=== PATIENT | female | born 1950 | race Two or more races ===

== ENCOUNTER 2024-11-11 16:42 | Inpatient (IN) | payer MEDICAID, MEDICARE ==
[~2024-11-11] VITALS: Ht 157.5 cm; Wt 61.2 kg
[2024-11-11 17:35] LABS: PLATELET COUNT (AUTO) 289 K/uL (150-450); RED BLOOD CELL COUNT(AUTO) 4.96 MIL/uL (4.0-5.2); RED CELL DISTRIBUTION WIDTH 20.6 % (11.5-15.0); WHITE BLOOD COUNT (AUTO) 10.0 K/uL (4.3-11.0)
[2024-11-11 17:37] LABS: APPEARANCE,URINE CLEAR (CLEAR); BLOOD, URINE TRACE-INTA Ery/uL (NEGATIVE); LEUKOCYTE ESTERASE ,URINE NEGATIVE (NEGATIVE); NITRITE, URINE NEGATIVE (NEGATIVE); UGLUCOSE NEGATIVE (NEGATIVE)
[2024-11-11 17:43] LABS: CALCIUM, SERUM 9.2 mg/dL (8.5-10.1); CREATININE 0.7 mg/dL (0.6-1.3); SODIUM SERUM 131 mmol/L (136-145); UREA NITROGEN, BLOOD 14 mg/dL (7-18)
[2024-11-11 17:49] LABS: ADD URINE CULTURE NO
[2024-11-11 17:49] LABS: ALCOHOL, BLOOD < 3 mg/dL (0-10); ASPARTATE AMINOTRANSFERASE 28 U/L (15-37); TOTAL PROTEIN, SERUM 8.2 g/dL (6.4-8.2)
[2024-11-11 18:15] LABS: AMPHETAMINE, URINE NEGATIVE (NEGATIVE); BARBITURATE, URINE NEGATIVE (NEGATIVE); BENZODIAZEPINE, URINE NEGATIVE (NEGATIVE); CANNABINOID, URINE NEGATIVE (NEGATIVE); COCCAINE, URINE NEGATIVE (NEGATIVE); OPIATE, URINE NEGATIVE (NEGATIVE)
[2024-11-11] MEDS ORDERED: INSU100V7 SQ (21:08)
[2024-11-11] MEDS ORDERED: PANT40TA49 PO (21:08)
[2024-11-11] MEDS ORDERED: FLUT1BLS14 INH (21:08)
[2024-11-11] MEDS ORDERED: ICOS1CAP PO ×2 (21:08)
[2024-11-11] MEDS ORDERED: OLME5TAB3 PO (21:08)
[2024-11-11] MEDS ORDERED: POTA10CA43 PO (21:08)
[2024-11-11] MEDS ORDERED: EMPA10TA PO (21:08)
[2024-11-11] MEDS ORDERED: ROSU20TA2 PO (21:08)
[2024-11-11] MEDS ORDERED: DAPA1TAB3 PO (21:08)
[2024-11-11] MEDS ORDERED: TRAM50TA2 PO (21:08)
[2024-11-11] MEDS ORDERED: ACET325C7 PO (21:08)
[2024-11-11] MEDS ORDERED: ZOLPIDEM TARTRATE 5 MG TABLET PO PRN (22:30)
[2024-11-11] MEDS ORDERED: QUETIAPINE FUMARATE 25 MG TABLET PO PRN (22:30)
[2024-11-11] MEDS ORDERED: MAGNESIUM HYDROXIDE 30 ML UDC PO PRN (22:30)
[2024-11-11] MEDS ORDERED: MAG HYDROX/AL HYDROX/SIMETH 30 ML UDC PO PRN (22:30)
[2024-11-11] MEDS: BLOOD SUGAR DIAGNOSTIC 1 EACH STRIP IN ONE (23:18)
[2024-11-11] MEDS: ZOLPIDEM TARTRATE 5 MG TABLET PO PRN (23:27)
[2024-11-12] MEDS ORDERED: DEXTROSE 50%-WATER 50 ML DISP.SYRIN IV PRN (01:30)
[2024-11-12 03:31] VITALS: BP 138/79; TEMP 98.5; O2SAT 96
[2024-11-12 07:38] LABS: PLATELET COUNT (AUTO) 245 K/uL (150-450); RED BLOOD CELL COUNT(AUTO) 4.37 MIL/uL (4.0-5.2); RED CELL DISTRIBUTION WIDTH 20.5 % (11.5-15.0); WHITE BLOOD COUNT (AUTO) 8.0 K/uL (4.3-11.0)
[2024-11-12] MEDS: BLOOD SUGAR DIAGNOSTIC 1 EACH STRIP VI SCH (07:44)
[2024-11-12 08:00] VITALS: BP 123/61; TEMP 97.8; O2SAT 98
[2024-11-12 08:02] LABS: CALCIUM, SERUM 9.0 mg/dL (8.5-10.1); CREATININE 0.7 mg/dL (0.6-1.3); SODIUM SERUM 136.0 mmol/L (136-145); UREA NITROGEN, BLOOD 13.0 mg/dL (7-18)
[2024-11-12] MEDS: PANTOPRAZOLE 40 MG TABLET.DR PO SCH (08:43)
[2024-11-12] MEDS: ATORVASTATIN 40 MG TABLET PO SCH (08:43)
[2024-11-12] MEDS: POTASSIUM CHLORIDE 10 MEQ TABLET.SA PO SCH (08:43)
[2024-11-12] MEDS: EMPAGLIFLOZIN 10 MG TABLET PO SCH (08:44)
[2024-11-12] MEDS: FLUTICASONE/VILANTEROL 1 EACH BLST.W.DEV IH SCH (08:45)
[2024-11-12] MEDS: LOSARTAN POTASSIUM 50 MG TABLET PO SCH (08:45)
[2024-11-12] MEDS: INSULIN REGULAR, HUMAN 100 UNIT/ML 3 ML VIAL SQ PRN (08:52)
[2024-11-12] MEDS ORDERED: Medication Not On Formulary EA (Icosapent Ethyl (Vascepa) 2 GM) PO SCH (09:00)
[2024-11-12] MEDS: TRAMADOL HCL 50 MG TABLET PO PRN (09:25)
[2024-11-12 16:00] VITALS: BP 119/69; TEMP 98.8; O2SAT 96
[2024-11-12] MEDS: RESTASIS 0.05% EACHEYE SCH (18:07)
[2024-11-12] MEDS: EYE EACHEYE SCH (18:07)
[2024-11-12] MEDS: SERTRALINE HCL 25 MG TABLET PO SCH (18:08)
[2024-11-12 20:40] VITALS: BP 123/60; TEMP 98.6; O2SAT 99
[2024-11-12] MEDS: ACETAMINOPHEN 325 MG TABLET PO PRN (21:32)
[2024-11-12] MEDS: INSULIN GLARGINE, 100 UNIT/ML CARTRIDGE SQ SCH (21:42)
[2024-11-12] MEDS: *INSULIN REGULAR(HUMULIN R)HUM 100 UNIT/ML VIAL SQ PRN (21:43)
[2024-11-12] MEDS: TEMAZEPAM 7.5 MG CAPSULE PO PRN (22:17)
[2024-11-13 08:00] VITALS: BP 123/58; TEMP 98.2; O2SAT 98
[2024-11-13 16:00] VITALS: BP 131/59; TEMP 99; O2SAT 100
[2024-11-13] MEDS ORDERED: DIPHENOXYLATE HCL/ATROP SULF 1 UDTAB TABLET PO PRN (17:30)
[2024-11-13 20:53] VITALS: BP 155/79; TEMP 98.8; O2SAT 100
[2024-11-14 08:01] VITALS: BP 130/72; TEMP 97.9; O2SAT 97
[2024-11-14 16:00] VITALS: BP 136/69; TEMP 98.1; O2SAT 98
[2024-11-14 20:23] VITALS: BP 150/73; TEMP 98.2; O2SAT 100
[2024-11-15 08:00] VITALS: BP 161/75; TEMP 98.6; O2SAT 100
[2024-11-15 16:00] VITALS: BP 139/72; TEMP 98.7; O2SAT 98
[2024-11-15] MEDS ORDERED: METFORMIN HCL PO SCH (17:00)
[2024-11-15] MEDS ORDERED: DAPAGLIFLOZIN PROPANEDIOL 5 MG TABLET PO SCH ×4 (17:00)
[2024-11-15] MEDS ORDERED: DAPAGLIFLOZIN PO SCH (17:00)
[2024-11-15] MEDS ORDERED: METFORMIN XR 500 MG TAB.SR.24H PO SCH (17:00)
[2024-11-15 17:12] LABS: PLATELET COUNT (AUTO) 236 K/uL (150-450); RED BLOOD CELL COUNT(AUTO) 4.16 MIL/uL (4.0-5.2); RED CELL DISTRIBUTION WIDTH 20.9 % (11.5-15.0); WHITE BLOOD COUNT (AUTO) 6.5 K/uL (4.3-11.0)
[2024-11-15 17:25] LABS: CALCIUM, SERUM 8.9 mg/dL (8.5-10.1); CREATININE 0.5 mg/dL (0.6-1.3); SODIUM SERUM 134.0 mmol/L (136-145); UREA NITROGEN, BLOOD 13.0 mg/dL (7-18)
[2024-11-15 17:35] LABS: INR 1.03 (0.91-1.10)
[2024-11-15 18:24] LABS: BASOPHILS % (MANUAL) 0 % (0.0-2.0); EOSINOPHILS % (MANUAL) 4 % (0-4); LYMPHOCYTES % (MANUAL) 35 % (16-48); MONOCYTES % (MANUAL) 6 % (0-11.0); NEUTROPHILS % (MANUAL) 55 (42-76); PLATELET ESTIMATE ADEQUATE
[2024-11-15 20:00] VITALS: BP 136/75; TEMP 97.8; O2SAT 98
[2024-11-16 08:00] VITALS: BP 153/76; TEMP 97.8; O2SAT 98
[2024-11-16] MEDS: SERTRALINE HCL 25 MG TABLET PO SCH (09:19)
[2024-11-16 16:00] VITALS: BP 144/75; TEMP 97.7; TEMP 98.6; O2SAT 100; O2SAT 96
[2024-11-16 19:51] VITALS: BP 124/56; TEMP 98.4; O2SAT 100
[2024-11-17 08:00] VITALS: BP 139/67; TEMP 98.6; O2SAT 98
[2024-11-17 08:15] VITALS: BP 139/67
== END 2024-11-17 12:00 | disposition home or self-care (01) | DRG 885 ==
LOC: ER 16:48 → GPS 21:08
PROVIDERS: ADMIT Psychiatry & Neurology Psychiatry; ATTEND Student in an Organized Health Care Education/Training Program
DX: F39 Unspecified mood [affective] disorder (principal); E87.1 Hypo-osmolality and hyponatremia; F43.21 Adjustment disorder with depressed mood; F31.9 Bipolar disorder, unspecified; E11.9 Type 2 diabetes mellitus without complications; E78.5 Hyperlipidemia, unspecified; G47.00 Insomnia, unspecified; I10 Essential (primary) hypertension; J45.909 Unspecified asthma, uncomplicated; Z79.4 Long term (current) use of insulin; Z87.891 Personal history of nicotine dependence; F13.10 Sedative, hypnotic or anxiolytic abuse, uncomplicated; Z20.822 Contact with and (suspected) exposure to COVID-19; S62.102D Fracture of unspecified carpal bone, left wrist, subsequent encounter for fracture with routine healing; X58.XXXD Exposure to other specified factors, subsequent encounter; Z79.899 Other long term (current) drug therapy; Z88.6 Allergy status to analgesic agent
CPT/HCPCS: 36415; 71045-TC; 80048-TC; 80076-TC; 81001; 82962-TC; 84443-TC; 85025-TC; 85027-TC; 85730-TC; 87081-TC; 97112-TC; 97116-TC; 97530-TC; 98960; G0480; J1815